=== PATIENT | female | born 1950 | race Caucasian/White ===

== ENCOUNTER → 2019-07-08 | Outpatient (CLI) | payer OTHER ==
--- NOTE | 2019-07-08 13:51 | XR ---
EXAMINATION TYPE: XR cervical spine limited DATE OF EXAM: 07/08/2019 TECHNIQUE: Frontal, lateral and open mouth view of the cervical spine are obtained. HISTORY: [id number], [id number], [id number] COMPARISON: None FINDINGS: The cervical spine is visualized in its entirety from C1 thru the top of T1 level, it is s atisfactory in alignment without evidence of acute fracture or dislocation. Mild multilevel degenera tive disc disease is seen of the cervical spine at C5-C6 and C6-C7 with small anterior osteophytes an d uncovertebral hypertrophy The pre-vertebral soft tissue appears within normal limits. The C1-C2 ar ticulation is within normal limits on the open mouth view. Straightening of usual cervical lordosis i s seen. IMPRESSION: No acute fracture or dislocation is seen in the cervical spine. Mild multilevel degenera tive disc disease of the cervical spine. Straightening of the cervical lordosis may relate to muscula r sprain/spasm or positioning.
--- NOTE | 2019-07-08 14:44 | XR ---
EXAMINATION TYPE: XR lumbar spine 2 or 3V DATE OF EXAM: 07/08/2019 CLINICAL HISTORY: M99.01, M99.03, M84.42 TECHNIQUE: Frontal, lateral, and oblique images of the lumbar spine are obtained. COMPARISON: None FINDINGS: There is a mild levoscoliosis of the lumbar spine. Mild to moderate multilevel degenerative disc disease of the lumbar spine is seen as small anterior osteophytes, intervertebral disc space na rrowing, and facet arthropathy. Overall mild atherosclerosis is seen. No vertebral body height loss o r malalignment. IMPRESSION: 1. No acute fracture or malalignment is seen in the lumbar spine. 2. Mild levoscoliosis of lumbar spine and moderate multilevel degenerative disc disease.
--- NOTE | 2019-07-08 15:09 | XR ---
EXAMINATION TYPE: XR pelvis AP view DATE OF EXAM: 07/08/2019 CLINICAL HISTORY: Left sacroiliac joint pain TECHNIQUE: A single AP view of the pelvis is obtained. COMPARISON: None. FINDINGS: There is no acute fracture/dislocation evident in the pelvis. The hip and sacroiliac join ts appear symmetric and demonstrate minimal sclerosis of the sacroiliac joints bilaterally. No sacroi liac joint space widening. Minimal acetabular roof sclerosis bilaterally. Moderate degenerative francis es of the lumbosacral junction. The overlying soft tissue appears unremarkable. IMPRESSION: 1. No acute fracture or dislocation in the pelvis. 2. Symmetric mild bilateral sacroiliitis versus degenerative change. 3. Mild bilateral femoral acetabular arthropathy and moderate degenerative changes of the lumbosacral junction.
== END | disposition home or self-care (01) ==
LOC: RADXRMAIN 13:24
PROVIDERS: ATTEND Chiropractor
DX: M50.322 Other cervical disc degeneration at C5-C6 level (principal); M51.36 Other intervertebral disc degeneration, lumbar region; M12.859 Other specific arthropathies, not elsewhere classified, unspecified hip
CPT/HCPCS: 72040; 72100; 72170